=== PATIENT | female | born 1970 | race Caucasian/White ===

== ENCOUNTER 2018-11-20 14:15 | Outpatient (REF) | payer OTHER, SELFPAY ==
--- NOTE | 2018-11-20 14:00 | PAPFT_PTH ---
PATIENT: Devin Davis LOC: [facility] U#:[id number] AGE/SX: 47/F ROOM: RE11/20/[address]: ANTON Madden : 1970 BED: DIS: 11/20/2018 SPEC #: [id number] RECD: 11/20/18 17:58 STATUS: CEASAR REQ #: [id number] MONICA: 11/20/18 14:[address]: Sharmaine eVntura DEPT: [facility] Cytology RECD BY: Callie Hankins ENTERED: 11/20/18 17:59 SP TYPE: PAPFT NANDINI DR: Haydee Breaux Tissues: 1 - CX/ENDOCX FOR PAP SMEARS Procedures: PAP THIN PREP/UVM Screening HPV DNA PROBE Comments: [id number]
== END 2018-11-20 14:35 ==
LOC: LBN 14:15
PROVIDERS: PCP Physician Assistant Medical; Visit Provider Nurse Practitioner Family
DX: Z12.4 Encounter for screening for malignant neoplasm of cervix (principal); Z11.51 Encounter for screening for human papillomavirus (HPV)
CPT/HCPCS: 88142; 87624

== ENCOUNTER 2019-04-16 16:36 | Outpatient (REF) | payer OTHER, SELFPAY ==
--- NOTE | 2019-04-16 14:30 | LABIA_PTH ---
PATIENT: Devin Davis LOC: [facility] U#:[id number] AGE/SX: 48/F ROOM: RE04/16/[address]: Darleen Rice NP : 1970 BED: DIS: 04/16/2019 SPEC #: [id number] RECD: 04/16/19 17:18 STATUS: CEASAR REDilshad #: [id number] MONICA: 04/16/19 14:[address]: Darleen Rice NP DEPT: Surgical Specimen RECD BY: Callie Hankins ENTERED: 04/16/19 17:19 SP TYPE: LABIA OTHR DR: Haydee Breaux Tissues: 1 - LABIA BX Procedures: GROSS AND MICRO LEVEL 4 SPECIAL STAIN 1 Comments: [id number]
== END 2019-04-16 16:56 ==
LOC: LBN 16:36
PROVIDERS: PCP Physician Assistant Medical; Visit Provider Nurse Practitioner Women's Health
DX: L29.2 Pruritus vulvae (principal); N90.69 Other specified hypertrophy of vulva; N90.4 Leukoplakia of vulva
CPT/HCPCS: 88305; 88312

== ENCOUNTER 2020-02-13 14:18 | Outpatient (REF) | payer OTHER, SELFPAY ==
[2020-02-17 21:54] LABS: Patient Race White; SARS-CoV-2 RNA Undetected (Undetected); SARS-CoV-2 Specimen Source Nasal
== END 2020-02-13 14:38 ==
LOC: NCHCN 14:18
PROVIDERS: PCP Physician Assistant Medical; Visit Provider Physician Assistant Medical
DX: Z11.59 Encounter for screening for other viral diseases (principal); Z00.00 Encounter for general adult medical examination without abnormal findings
CPT/HCPCS: U0003

== ENCOUNTER 2020-02-26 14:35 | Outpatient (REF) | payer SELFPAY ==
[2020-02-29 16:59] LABS: COVID-19 RT-PCR Result NEGATIVE (Negative)
== END 2020-02-26 14:55 ==
LOC: NCHCN 14:35
PROVIDERS: PCP Physician Assistant Medical; Visit Provider Physician Assistant Medical
DX: Z11.59 Encounter for screening for other viral diseases (principal)
CPT/HCPCS: U0003

== ENCOUNTER 2020-04-21 01:57 | Outpatient (CLI) | payer BC, SELFPAY ==
--- NOTE | 2020-04-21 07:15 | DI.MAMMO_ITS ---
EXAM: MAMMO SCREENING CLINICAL HISTORY: screening,Z12.39 TECHNIQUE: Mammograms were interpreted according to the usual protocol including computer analysis w [employer] CAD system, tomosynthesis and C-view imaging. COMPARISON: 2013 and 2014 FINDINGS: The breasts are composed of scattered fibroglandular densities, Breast Density category B. No suspicious masses or suspicious microcalcifications are seen. No skin thickening or abnormal axillary lymph nodes are seen. There has been no significant change from prior exams. A biopsy marker clip is again noted in the sup erior right breast. IMPRESSION: BI-RADS Category 1, Negative mammogram Yearly screening mammography is recommended. Breast Density - Category B, scattered fibroglandular densities. A negative radiographic report should not delay biopsy if a dominant or clinically suspicious mass is present. Up to ten percent of cancers are not identified on mammography. A negative report may reinforce clinical impression. Adenosis and dense breasts may obscure an underlying neoplasm. False positive reports average 6 to 10%. Patient will receive a letter notifying them of these results.
== END 2020-04-21 02:17 ==
PROVIDERS: PCP Physician Assistant Medical; Visit Provider Obstetrics & Gynecology
DX: Z12.31 Encounter for screening mammogram for malignant neoplasm of breast (principal)
CPT/HCPCS: 77063; 77067

== ENCOUNTER 2020-05-08 18:47 | Outpatient (CLI) | payer BC, SELFPAY ==
[2020-05-09 11:46] LABS: COVID-19 RT-PCR UVMMC Result Negative (Negative)
== END 2020-05-08 18:48 | disposition home or self-care (01) ==
LOC: LBO 05-14 18:48
PROVIDERS: PCP Physician Assistant Medical; Visit Provider Surgery
DX: Z01.818 Encounter for other preprocedural examination (principal)
CPT/HCPCS: U0003

== ENCOUNTER 2020-05-11 11:59 | Day surgery (SDC) | payer BC, SELFPAY ==
--- NOTE | 2020-05-11 07:08 | W.COLOREPORT ---
Date of service: 05/11/20 Time of Service: 14:17 Colonoscopy Report Date of procedure: 05/11/20 Pre-op diagnosis general: Colon Cancer Screening Post-op diagnosis procedure note: same Procedure: Colonoscopy Surgeon: Gisselle Ponce Anesthesia proc note operative: other (General/ASA 2/Albaro Mendez, ELLIE) Estimated blood loss (mL): 0 Pathology: none sent Complications: None Disposition: same day Indications: The patient is here for Colonoscopy pre-op. She has no family history of colon cancer. 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 She has not had any bowel habit changes. -Discussed colonoscopy bowel prep as well as the procedure. Discussed possible complications of the procedure to include bleeding, pain, perforation, missed small lesion/polyp, sore throat, aspiration and adverse reaction to the medications. Questions were answered to patient?s satisfaction. No guarantees were implied or given. I spent 26 minutes in reviewing the record, seeing the patient, providing patient education, answering patient's questions and documenting in the medical record. P// Colonoscopy under sedation. Prep: Miralax/Dulcolax Procedure Start Time: 14:17 Procedure End Time: 14:39 Retraction Time: 12 minutes Findings: Normal colon Procedure Description: After informed consent was obtained the patient was taken to the procedure room and placed in a left decubitous position. Monitors were applied and a time out was done. The patients name, date of , procedure, allergies to medications and metal in their body was reviewed. The patient was then sedated. Once sedated and comfortable a rectal exam was done. External exam was normal. Internal exam revealed a normal sphincter tone and no palpable masses. The scope was then introduced and retro-flexed. No internal hemorrhoids, polyps or masses were identified on retro-flexion. The scope was then advanced to the cecum without difficulty. The ileocecal vlave and appendiceal orifice were identified. The prep was good. The scope was then slowly retracted over 12 minutes back into the rectum. There were no polyps. There was no diverticulosis noted. The scope was removed and the patient was woken up and taken back to Same day surgery in stable condition. The patient tolerated the procedure well and there were no immediate complications. Follow up: The patient should follow up in 10 years unless they develop changes in bowel habits or other new gastrointestinal complaints.
--- NOTE | 2020-05-11 07:09 | W.PM.DSUDISC ---
Discharge Plan Disposition Patient Disposition: HOME Condition: Good Discharge Details Reason For Visit: Colon Cancer Screening Attending Provider: Gisselle Ponce Primary Care Provider: Haydee Breaux Home Meds and New Rx's Prescriptions: Continued ParaGard T 380A 380 square mm intrauterine device 1 device IY ONCE RF: 0 spironolactone 25 MG tablet 50 mg PO DAILY RF: 0 calcium carbonate 500 MG tablet,chewable 500 mg PO DAILY Qty: 2 RF: 0 zolpidem [Ambien] 10 MG tablet 10 mg PO HS RF: 0 omega-3 fatty acids-fish oil 1 EACH capsule 1 ea PO DAILY RF: 0 Antioxidant A/C/E/Selenium 1 EACH capsule 1 ea PO DAILY RF: 0 Vitamin D3 (calcium cit-phos) 1 EACH tablet 1 ea PO DAILY RF: 0 venlafaxine 100 MG tablet 100 mg PO DAILY RF: 0 Discontinued polyethylene glycol 3350 17 gram/dose powder 238 g PO ONCE Qty: 238 RF: 0 bisacodyl [Dulcolax (bisacodyl)] 5 mg tablet,delayed release (DR/EC) 5 mg PO ONCE Qty: 4 RF: 0 No Action ibuprofen 200 mg Tablet 600 mg PO Q6H PRNRF: 0 Discharge Instructions Additional Instructions: Findings: Normal Follow up: 10 years Please call if you develop: fevers >101.5 Nausea or Vomiting Abdominal pain that is not transient DAY SURGERY UNIT POST ENDOSCOPY INSTRUCTIONS 1. Because there will be medication in your system for the next 24 hours, you may feel a little sleepy. Your coordination will be affected. Therefore: a. Do not drive or operate dangerous equipment for 24 hours. b. Do not drink alcohol beverages for 24 hours (not even beer). c. Plan to go home and rest for the day. 2. Generally there are no restrictions on your activity after a day or so has gone by, but you may feel a bit fatigued for a few days. 3 After you arrive home you may have a light meal and return to a normal diet as you can tolerate it without feeling sick to your stomach. 4. After surgery, you may feel pain or discomfort. This should be only transient, but if it persists please contact your doctor. 5. If there are any questions regarding the findings of your procedure, please feel free to contact your doctor. 6. If you are unable to contact your doctor with a problem, contact the hospital at [phone]. 5. Continue all your regular medications unless directed otherwise. I understand the above instructions and have no questions. Signature of Patient or Responsible Adult Escort Date/Time Name of Responsible Adult Escort Signature of Nurse Date/Time Activity:: Activity as Tolerated Diet:: As Tolerated Discharge Orders Discharge Orders: Discharge Order (Routine); Ordered 05/11/20 Ordered By: Gisselle Ponce
[2020-05-11 12:28] VITALS: BP 109/69; PULSE 79; RESP 16; TEMP 36.3; O2SAT 99
[2020-05-11] MEDS: Lactated Ringers 1,000 ML 80 ML IV (12:55)
[2020-05-11 15:03] VITALS: BP 107/67; PULSE 75; RESP 16; TEMP 36.7; O2SAT 100
== END 2020-05-11 15:40 | disposition home or self-care (01) ==
LOC: SUR 11:59
PROVIDERS: PCP Physician Assistant Medical; Visit Provider Surgery
PROC: 0DJD8ZZ Inspection of Lower Intestinal Tract, Via Natural or Artificial Opening Endoscopic (ICD-10-PCS; CPT 45378; principal; 2020-05-11 13:00)
DX: Z12.11 Encounter for screening for malignant neoplasm of colon (principal)
CPT/HCPCS: 45378; 81025; J2001

== ENCOUNTER 2021-02-16 13:41 | Outpatient (REF) | payer BC, SELFPAY ==
[2021-02-17 14:37] LABS: COVID-19 RT-PCR UVMMC Result Negative (Negative)
== END 2021-02-16 13:42 | disposition home or self-care (01) ==
LOC: NCHCN 13:41
PROVIDERS: PCP Physician Assistant Medical; Visit Provider Physician Assistant Medical
DX: Z20.822 Contact with and (suspected) exposure to COVID-19 (principal)
CPT/HCPCS: U0003

== ENCOUNTER 2022-11-29 16:05 | Outpatient (REF) | payer BC, SELFPAY ==
--- NOTE | 2022-11-29 15:30 | PAPFT_PTH ---
PATIENT: Devin Davis LOC: [facility] U#:[id number] AGE/SX: 51/F ROOM: RE11/29/[address]: Darleen Rice NP : 1970 BED: DIS: 11/29/2022 SPEC #: [id number] RECD: 11/30/22 17:29 STATUS: CEASAR DODD #: [id number] MONICA: 11/29/22 15:[address]: Darleen Rice NP DEPT: [facility] Cytology RECD BY: Callie Hankins ENTERED: 11/30/22 17:29 SP TYPE: PAPFT NANDINI DR: Haydee Breaux Tissues: 1 - CX/ENDOCX FOR PAP SMEARS Procedures: PAP THIN PREP/UVM Screening HPV DNA PROBE Comments: [id number]
== END 2022-11-29 16:06 | disposition home or self-care (01) ==
LOC: LBN 16:05
PROVIDERS: PCP Physician Assistant Medical; Visit Provider Nurse Practitioner Women's Health
DX: Z12.4 Encounter for screening for malignant neoplasm of cervix (principal); R87.610 Atypical squamous cells of undetermined significance on cytologic smear of cervix (ASC-US); Z11.51 Encounter for screening for human papillomavirus (HPV); R87.810 Cervical high risk human papillomavirus (HPV) DNA test positive
CPT/HCPCS: 88142; 87624

== ENCOUNTER → 2022-11-30 09:57 | Outpatient (CLI) | payer BC, SELFPAY ==
--- NOTE | 2022-11-30 09:45 | DI.RAD_ITS ---
Exam(s) XR PELVIS AP EXAM: XR PELVIS AP CLINICAL HISTORY: retained IUD arm localization, T83.32XA. TECHNIQUE: 2D digital imaging was performed. COMPARISON: No exams were available for comparison FINDINGS: BONES: No acute fracture is present. No bony destructive lesion is seen. JOINTS: No dislocation present. No joint space narrowing is present. SOFT TISSUE: There is a 1.2 cm linear radiopaque foreign body seen in the pelvis. This may represent an arm of an IUD. It lies just to the left of the sacrum. IMPRESSION: Finding which would be consistent with retained IUD arm located to the left of the sacrum in the pelv is. Its exact location cannot be determined and if clinically indicated, a noncontrast CT scan of th e pelvis may be obtained for localization. DATA REPOSITORY: RADIATION DOSE DELIVERED:
== END ==
PROVIDERS: PCP Physician Assistant Medical; Visit Provider Obstetrics & Gynecology
DX: T83.32XA Displacement of intrauterine contraceptive device, initial encounter (principal); X58.XXXA Exposure to other specified factors, initial encounter
CPT/HCPCS: 72170

== ENCOUNTER → 2022-12-19 00:35 | Outpatient (CLI) | payer BC, SELFPAY ==
--- NOTE | 2022-12-19 11:45 | DI.MAMMO_ITS ---
Exam(s) MAMMO SCREENING EXAM: MAMMO SCREENING CLINICAL HISTORY: screening. TECHNIQUE: Bilateral full field digital CC and MLO mammographic images were obtained with 3D tomosyn thesis and utilizing computer aided detection (CAD). COMPARISON: Prior mammograms were reviewed. FINDINGS: There has been no significant change in the appearance and distribution of the fibroglandular tissue. There are no CAD designations. There are no new spiculated masses nor malignant appearing microcalcification groups. No new findings in the immediate vicinity of the biopsy marker clip in the right breast. There is no significant architectural distortion nor skin thickening-retraction. IMPRESSION: No radiographic evidence of malignancy. BI-RADS Category 1 - Negative Breast Density - Category B - Scattered areas of fibroglandular density Breast density Category C or D implies that the patient has dense breast tissue. Dense breast tissue can make it harder to find cancer on a mammogram. Dense breast tissue is also associated with an incr eased risk of breast cancer. This information about the result of the mammogram report was provided to the patient to raise their awareness. Use this report when you speak with the patient about their risks for breast cancer, which includes their family history. At that time, you may recommend additional screening tests (Ultrasoun d or MRI) as these tests may add significant information. A negative radiographic report should not delay biopsy if a dominant or clinically suspicious mass is present. Up to ten percent of cancers are not identified on mammography. A negative report may reinforce clinical impression. Adenosis and dense breasts may obscure an underlying neoplasm. False positive reports average 6 to 10%. Patient will receive a letter notifying them of these results.
== END ==
PROVIDERS: PCP Physician Assistant Medical; Visit Provider Nurse Practitioner Women's Health
DX: Z12.31 Encounter for screening mammogram for malignant neoplasm of breast (principal)
CPT/HCPCS: 77063; 77067

== ENCOUNTER 2022-12-27 13:59 | Outpatient (CLI) | payer BC, SELFPAY ==
[2022-12-27 14:04] LABS: Abs Immature Grans 0.01 10^3/uL (0.0-0.06); Absolute Basophil Count 0.07 10^3/uL (0.0-0.2); Absolute Eosinophil Count 0.49 10^3/uL (0.0-0.7); Absolute Lymphocyte Count 1.83 10^3/uL (1.2-3.4); Absolute Monocyte Count 0.45 10^3/uL (0.1-0.8); Absolute Neutrophil Count 4.54 10^3/uL (1.2-6.7); Basophils % 0.9; Eosinophils % 6.6; HCT 41.6 % (36.0-46.0); HGB 13.8 g/dL (11.2-15.7); Immature Grans % 0.1; Lymphocytes % 24.8; MCH 29.7 pg (27.0-33.0); MCHC 33.2 % (32.0-36.0); MCV 90 fL (80-95); MPV 8.9 fL (8.0-11.0); Monocytes % 6.1; Neutrophils % 61.5; Platelet Count 395 10^3/uL (130-400); RBC 4.65 10^6/uL (3.93-5.22); RDW 11.6 % (11.7-14.6); RDW-SD 37.7 fL; WBC 7.39 10^3/uL (4.4-10.8)
== END 2022-12-27 14:00 | disposition home or self-care (01) ==
LOC: LBO 13:59
PROVIDERS: PCP Physician Assistant Medical; Visit Provider Obstetrics & Gynecology
DX: Z01.818 Encounter for other preprocedural examination (principal)
CPT/HCPCS: 36415; 86850; 86900; 86901; 85025

== ENCOUNTER 2022-12-29 06:07 | Day surgery (SDC) | payer BC, SELFPAY ==
--- NOTE | 2022-12-29 06:26 | W.ANESPRE ---
General Info Date of Service Date Performed: 12/29/22 Height: 5 ft 8 in Weight: 67.132 kg Body Mass Index (BMI): 22.5 Surgical Procedure: Operation Date: 12/29/22 07:40 Proposed Procedure Side Surgeon p Diagnostic Laparoscopy Areli Seo MD s possible Hysteroscopy, removal of IUD arm, surgery as indicated Areli Seo MD Meds Allergies and Home Medications Allergies Allergy/AdvReac Type Severity Reaction Status Date / Time trazodone Allergy Severe LABORED Verified 12/29/22 06:31 BREATHING latex AdvReac Intermediate Verified 12/29/22 06:31 Home Medication Medication Instructions Recorded calcium carbonate 500 mg calcium 500 mg PO DAILY ##2 02/06/13 (1,250 mg) chewable tablet omega-3 fatty acids-fish oil 300 1 ea PO DAILY 02/06/13 mg-1,000 mg capsule spironolactone 25 mg tablet 50 mg PO DAILY 02/06/13 vitamins A,C,and E-selenium 1 ea PO DAILY 02/06/13 capsule (Antioxidant A/C/E/Selenium capsule) venlafaxine 100 mg tablet 100 mg PO DAILY 05/23/16 copper 380 square mm intrauterine 1 device intrauterine ONCE 04/03/19 device (ParaGard T 380A) ibuprofen 200 mg tablet 600 mg PO Q6H PRN 05/11/20 methylphenidate HCl 5 mg tablet 5 mg PO BID 11/29/22 (Ritalin) zolpidem 10 mg tablet (Ambien) 5 mg PO HS 11/29/22 aripiprazole 2 mg tablet 1 mg PO BID 12/27/22 progesterone micronized 100 mg 100 mg PO HS 12/28/22 capsule Current Visit Medications: Current Medications Generic Name Dose Route Start Last Admin Trade Name Freq PRN Reason Stop Dose Admin Ringer's Solution 1,000 mls @ 125 mls/hr 12/29/22 06:00 IV 01/27/23 23:59 INFUSION DAYANA IV Miscellaneous Supplies 1 each 12/29/22 06:00 Iv Access IV 01/27/23 23:59 DIRECTED DAYANA Sodium Chloride 0 ml 12/29/22 06:00 Normal Saline Flush 10 Ml Syr IV 01/27/23 23:59 PRN PRN Sodium Chloride 0 ml 12/29/22 06:00 Normal Saline 10 Ml Vial IJ 01/27/23 23:59 DIRECTED PRN Sterile Water 0 ml 12/29/22 06:00 Water,Injection,Sterile 10 Ml Vial IJ 01/27/23 23:59 DIRECTED PRN PFSH Active Problems Active Problems: Problem Status Onset Code Perimenopause N95.1 Malpositioned IUD T83.32XA Medical History Medical History Breast cancer screening breast lump R Benign 2009 IUD surveillance (02/01/12) Attempted paragard IUD removal 11/29 (only the shaft) and 11/30 with endosee (only 1 arm). x-ray scheduled for evaluation for other arm Surgical History Surgical History History of recent maxillofacial surgery surgery was wisdom teeth removed Hx of esophagogastroduodenoscopy Sclerotherapy L leg veins 2007 Tobacco Smoking/Tobacco Use Status: Former Tobacco Use Substance Use Substance use: Current Sobriety Substance use type: former substance user Prental History History 5 Para 0 Hx # Term Pregnancies Multiple births Hx # Pregnancies Ectopic pregnancies AB induced Hx Number of Living Children 1 AB spontaneous Vital Signs and Lab Results Lab Results Blood Type / Crossmatch: Patient ABO/Rh O Positive 12/27/22 Antibody Screen NEGATIVE 12/27/22 Complete Blood Count: White Blood Count 7.39 10^3/uL (4.4-10.8) 12/27/22 13:45 Red Blood Count 4.65 10^6/uL (3.93-5.22) 12/27/22 13:45 Hemoglobin 13.8 g/dL (11.2-15.7) 12/27/22 13:45 Hematocrit 41.6 % (36.0-46.0) 12/27/22 13:45 Platelet Count 395 10^3/uL (130-400) 12/27/22 13:45 Complete Metabolic Panel: No Data to Display Liver Function Panel: No Data to Display Coagulation Panel: No Data to Display Cardiac Panel: No Data to Display Arterial Blood Gas: No Data to Display Venous Blood Gas: No Data to Display Pancreas Panel: No Data to Display Thyroid Panel: No Data to Display Infectious Disease: No Data to Display Blood Cultures: No Data to Display Toxicology Panel: No Data to Display Panel: No Data to Display Anesthesia Assessment and Plan Anesthesia History Personal History: No History of Anesthesia Complications Family History: No Family History of Anesthesia Complications Exercise Tolerance Exercise Tolerance: Metabolic Equivalents>4 Pertinent Negatives Pertinent Negatives: No Symptoms of GERD, No Major Cardiovascular Symptoms or Complaints, No Major Pulmonary Symptoms or Complaints and No History of CVA/TIA Cardiac & Pulmonary Exam Cardiac Exam: Normal S1/S2 Heart Sounds Pulmonary Exam: Clear Bilateral Breath Sounds Implantable Cardiac Device Does patient have a Pacemaker or an ICD?: No Airway Exam Known Difficult Airway: No Mallampati Class: 2 Mouth Opening: Normal (> 3cm) Thyromental Distance: Greater than 3 cm Neck Range of Motion: Full ROM Neck Circumference: Normal Teeth Condition: Normal Dentition ASA Classification ASA Score: ASA 2 Emergency Case?: No NPO Status NPO Status: NPO Clears >2 hours, Solids >8 hours Status Status: Pt. refuses testing, she was counseled on anesthesia risks Anesthesia Plan Resuscitation Status: Full Code Anesthesia Technique: General Anesthesia Airway Planned: Natural Airway Monitors Used: Standard Monitors Preoperative Comments:: Patient concerned on receiving LR (makes her feel sick), does not want a test (still menstruating about once every 6 mo but does not feel she is and is concerned about cost, wishes to minimize testing and intervention), does not want an endotracheal tube unless absolutely necessary (patient uses her voice for work and is worried about vocal cord dysfunction after intubation). Ordered NS as a carrier, discussed and anesthesia at length, discussed when an ETT might be used and why and patient did agree if necessary can be placed. I will downsize the ETT to a 6.0 to minimize contact with vocal cords.
[2022-12-29 06:34] VITALS: BP 110/72; PULSE 67; RESP 16; TEMP 36.5; O2SAT 99
[2022-12-29] MEDS: Normal Saline Flush 10 ML SYR IV (06:55)
[2022-12-29] MEDS: Normal Saline 1,000 ML 30 ML IV (07:25)
[2022-12-29 07:31] VITALS: BMI 22.5
[2022-12-29] MEDS: Bupivacaine 0.5% Pres-Free 30 ML VIAL (08:12)
[2022-12-29 08:28] VITALS: BP 101/70; PULSE 61; RESP 16; TEMP 36.2; O2SAT 100
--- NOTE | 2022-12-29 08:38 | W.PM.OP ---
Date of service: 12/29/22 Time of Service: 08:00 Operative Note Operative Note DATE OF PROCEDURE: 12/29/22 PRE-OP DIAGNOSIS: Retained Paragard IUD arm POST-OP DIAGNOSIS: same PROCEDURE: Hysteroscopy, removal of IUD arm SURGEON: Areli Seo Refer to Anesthesia Record ESTIMATED BLOOD LOSS: 5 COMPLICATIONS: None Patient was transported to: same day Patient's condition: stable Indications: Retained paragard IUD arm after removal in office of only the IUD shaft, then office endosee procedure with removal of only 1 arm. Findings: The IUD arm was visualized in the left wall of the upper cervix. The endometrial cavity was viewed from within the cervical canal and appeared normal. Procedure Description: After informed consent was signed the patient was taken to the operating room and given General room air anesthesia.? SCDs were placed on her legs.? She was prepped and draped in the dorsal lithotomy position in the [facility].? A time out was performed. Her bladder was drained of urine.? Exam under anesthesia revealed normal external genitalia, vagina normal for age and a normal sized uterus. A speculum was placed into the vagina to reveal the cervix.? The anterior lip of the cervix was grasped with a single tooth tenaculum.? A paracervical block was given [id number] of 0.25% marcaine.? The hysteroscope was assembled and inserted into the cervical canal. Toward the upper left side of the cervical wall the white IUD arm was visualized poking out of the wall. It was grasped with a grasper and slowly pulled out of the wall. The site was inspected after removal and good hemostasis was noted. The uterine cavity was briefly viewed from the cervix and appeared normal. The tenaculum was removed from the cervix with good hemostasis.? The speculum was removed from the vagina. The patient was placed back into the supine position.? She was moved to the stretcher and taken to the recovery room in stable condition.
[2022-12-29 08:58] VITALS: BP 99/63; PULSE 78; RESP 16; TEMP 36.6; O2SAT 100
--- NOTE | 2022-12-29 10:15 | W.ANESPOSTOP ---
Postoperative Evaluation Date, Time and Location Date Performed: 12/29/22 Time Performed: 08:58 Patient Location: Day Surgery Unit Vital Signs Most Recent Imported Vital Signs: Most Recent Vital Signs Temp Pulse Resp BP Pulse Ox 36.6 C 78 16 99/63 L 100 12/29/22 08:58 12/29/22 08:58 12/29/22 08:58 12/29/22 08:58 12/29/22 08:58 Pain Score Most Recent Pain Score: Most Recent Pain Score Pain Level 0 12/29/22 08:58 Assessment Mental Status: Awake (Alert & Oriented to Patient Baseline) Airway and Respiratory Function: Patent airway with normal (patient baseline) respiratory exam Cardiovascular Function: Hemodynamically Stable Hydration Status: Adequately Hydrated Nausea & Vomiting: No Nausea or Vomiting Pain: Pt. Denies Any Pain Peripheral Nerve Block: Patient did not receive a nerve block
== END 2022-12-29 09:23 | disposition home or self-care (01) ==
PROVIDERS: PCP Physician Assistant Medical; Visit Provider Obstetrics & Gynecology
PROC: 0UJD8ZZ Inspection of Uterus and Cervix, Via Natural or Artificial Opening Endoscopic (ICD-10-PCS; CPT 58555; 2022-12-29 07:30)
DX: Z30.432 Encounter for removal of intrauterine contraceptive device (principal)
CPT/HCPCS: 58562; J0131; J1885; J2001; J2405

== ENCOUNTER 2023-04-04 10:35 | Outpatient (REF) | payer BC, SELFPAY | END 2023-04-04 10:36 | disposition home or self-care (01) | LOC: LBN 10:35 | PROVIDERS: PCP Physician Assistant Medical; Visit Provider Advanced Practice Midwife | DX: N89.8 Other specified noninflammatory disorders of vagina (principal) | CPT/HCPCS: 87480; 87510; 87660 ==

== ENCOUNTER 2023-07-24 16:01 | Outpatient (REF) | payer BC, SELFPAY ==
--- NOTE | 2023-07-24 15:30 | PAPFT_PTH ---
PATIENT: Devin Davis LOC: [facility] U#:[id number] AGE/SX: 52/F ROOM: RE07/24/[address]: Areli Seo MD : 1970 BED: DIS: 07/24/2023 SPEC #: [id number] RECD: 07/24/23 18:06 STATUS: CEASAR REDilshad #: [id number] MONICA: 07/24/23 15:[address]: Areli Seo DEPT: [facility] Cytology RECD BY: Callie Hankins ENTERED: 07/24/23 18:06 SP TYPE: PAPFT NANDINI DR: Haydee Breaux Tissues: 1 - CX/ENDOCX FOR PAP SMEARS Procedures: PAP THIN PREP/UVM Screening HPV DNA PROBE Comments: [id number]
== END 2023-07-24 16:02 | disposition home or self-care (01) ==
LOC: LBN 16:01
PROVIDERS: PCP Physician Assistant Medical; Visit Provider Obstetrics & Gynecology
DX: Z01.419 Encounter for gynecological examination (general) (routine) without abnormal findings (principal); N90.89 Other specified noninflammatory disorders of vulva and perineum
CPT/HCPCS: 88142; 87624

== ENCOUNTER 2024-01-25 12:12 | Outpatient (CLI) | payer BC, SELFPAY ==
--- OUTSIDE RECORDS SUMMARY | 2024-01-25 12:15 | XMS_ITS | Encounter Summary ---
Author Organization [facility] Address [address] [place] [address] Care Team Providers Care Center Medical And Lab Director Name Role Phone Md SONYA Murillo Primary Care Provider Haydee Garrido PA-C Primary Care Provider + Encounter Details Date Type Department Care Team (Late st Contact Info) Description 05/20/2020 Lab Requisition [facility] Pathology & Laboratory Medicine - [address] [address] Rocky Newman, PharmD [address] [place] [address] Contact with and (suspected) exposure to covid-19 Social History Tobacco Use Types Packs/Day Years Used Date Smoking Tobacco: Never Assessed Sex and Gender Information Value Date Recorded Sex Assigned at Not on file Gender Identity Not on file Sexual Orientation Not on file documented as of this encounter Plan of Treatment Not on file documented as of this encounter Procedures Procedure Name Priority Date/Time Associated Diagnosis Comments ZZCOVID-19 TEST [facility] PCR Today 05/20/2020 12:45 EST Contact with and (suspected) exposure to covid-19 COVID-19 TESTING Today 05/20/2020 12:4 5 EST Contact with and (suspected) exposure to covid-19 documented in this encounter Results * COVID-19 TEST [facility] PCR (05/20/2020 12:45 EST) Swab ENTIRE NASOPHARYNX / Unknown 05/20/2020 12:45 EST 05/20/2020 20:48 EST Rocky Newman PharmD MICROBIOLOGY - G ENERAL ORDERABLES [facility] [address] [place] [address] * COVID-19 TESTING (05/20/2020 12:45 EST) COVID-19 rt-PCR Result Negative Negative 05/21/2020 13:12 EST [facility] Comment: This test has not been FDA cleared or approved. This test has been authorized by FDA under an EUA for use by authorized laboratories. This test has been authorized only for detection of nucleic acid from 2019-nCoV, not for any other viruses or pathogens. This test is only authorized for the duration of the declaration that circumstances exist justifying the authorization of emergency use of in vitro diagnostic tests for detection and/or diagnosis of 2019-nCoV under section 564(b)(1) of Act, 21 U.S.C ?? 360bbb-3(b) (1), unless the authorization is terminated or revoked sooner. Negative results do not preclude 2019-nCoV infection and should not be used as the sole basis for treatment or other patient management decisions. Negative results must be combined with clinical observations, patient history, and epidemiological information. This test was developed and its performance characteristics determined by [facility]. It has not been cleared or approved by the US Food and Drug Administration. FDA does not require this test to go through premarket FDA review. This test is used for clinical purposes. It should not be regarded as investigational or for research. This laboratory is certified under the Clinical Laboratory Improvement Amendments (CLIA) as qualified to perform high complexity clinical laboratory testing. This test is based on the [facility] COVID-19 Emergency Use Authorization (EUA) assay, with minor modification as defined by the FDA Performed on the [employer] 7 Flex RT-PCR System. Performing Lab [facility] 05/21/2020 13:12 EST [facility] Swab 05/20/2020 12:4 5 EST 05/20/2020 20:48 EST Rocky Newman PharmD MICROBIOLOGY - G ENERAL ORDERABLES [facility] [address] [place] [address] documented in this encounter Visit Diagnoses Diagnosis Contact with and (suspected) exposure to covid-19 documented in this encounter Care Teams Center Medical And Lab Director Relationship Specialty Start Date End Date Md Murillo MD PCP - General 12/03/09 11/24/22 Haydee Breaux PA-C [address] [place] [id number] PCP - General 11/25/22 documented as of this encounter
--- OUTSIDE RECORDS SUMMARY | 2024-01-25 12:15 | XMS_ITS | Encounter Summary ---
Author Organization [facility] Address [address] [place] [address] Care Team Providers Care Admissions Counselor Name Role Phone Md SONYA Murillo Primary Care Provider Haydee Garrido PA-C Primary Care Provider + Encounter Details Date Type Department Care Team (Late st Contact Info) Description 04/17/2019 Lab Requisition [facility] Pathology & Laboratory Medicine - [address] [address] Darleen Rice, SAND SCREENER OPERATOR [address] [place] [phone] Encounter for other general examination Social History Tobacco Use Types Packs/Day Years Used Date Smoking Tobacco: Never Assessed Sex and Gender Information Value Date Recorded Sex Assigned at Not on file Gender Identity Not on file Sexual Orientation Not on file documented as of this encounter Plan of Treatment Not on file documented as of this encounter Procedures Procedure Name Priority Date/Time Associated Diagnosis Comments SURGICAL PATHOLOGY Today 04/16/2019 Encounter for other general examination documented in this encounter Results * SURGICAL PATHOLOGY (04/16/2019) Final Diagnosis A. SKIN OF VULVA, LEFT LABIA, PUNCH BIOPSY: - Epidermal hyperplasia and hyperkeratosis with mild dermal fibrosis. See microscopic and comment. 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 There is no appreciable spongiosis to suggest an eczematous process. There is no interface alteration to suggest lichen sclerosus. Fungal organisms are not identified. 04/18/2019 13:23 [facility] Microscopic Description Sections consist of a punch biopsy of skin. There is orthokeratosis overlying an epidermis which shows mild hyperplasia. There is mild fibrosis. There is scant inflammation. PAS-D stain is negative for fungal organisms. Deeper levels have been examined. 04/18/2019 13:23 [facility] Clinical History Vulvar pruritis 04/18/2019 13:23 [facility] Attestation By the signature below, the attending physician certifies that they have personally conducted a gross and/or microscopic examination of the described specimens and rendered or confirmed the above diagnosis. 04/18/2019 13:23 [facility] at 1323 Gross Description A. Received in formalin labelled with proper patient identification (initials N, C) and L labia is a butts-white skin punch biopsy measuring 0.2 cm in diameter and excised to a depth of 0.1 cm. Submitted intact in A1. Priyanka Gregory 04/17/2019 08:22 04/18/2019 13:23 [facility] Scanned Images 04/18/2019 13:23 [facility] Tissue STRUCTURE OF RIGHT LABIUM MINUS / Unknown 04/16/2019 04/17/2019 7:42 EST Darleen Rice APRN PATHOLOGY ORDERAB LES [facility] [address] [place] [address] documented in this encounter Visit Diagnoses Diagnosis Encounter for other general examination documented in this encounter Care Teams Admissions Counselor Relationship Specialty Start Date End Date Md Murillo MD PCP - General 12/03/09 11/24/22 Haydee Breaux PA-C [address] [place] [address] PCP - General 11/25/22 documented as of this encounter
--- OUTSIDE RECORDS SUMMARY | 2024-01-25 12:15 | XMS_ITS | Clinical Summary ---
Author Organization [facility] Address [address] [place] [address] Care Team Providers Care Compliance Vice President Name Role Phone Haydee Breaux PA-C Primary Care Provider + Immunizations Name Administration Dates Next Due Covid-19 mRNA Vaccine (PFIZE R COVID-19) PF 0.3 ml IM (12 yrs+) 08/07/2020,07/17/2020 Social History Tobacco Use Types Packs/Day Years Used Date Smoking Tobacco: Never Assessed Sex and Gender Information Value Date Recorded Sex Assigned at Not on file Gender Identity Not on file Sexual Orientation Not on file Plan of Treatment Health Maintenance Due Date Last Done Comments Hepatitis C Screen 1970 Hepatitis B Vaccine (1 of 3 - 19+ 3-dose series) 1988 COVID-19 Vaccine ( season) 2023, 07/17/2020 Care Teams Compliance Vice President Relationship Specialty Start Date End Date Haydee Breaux PA-C [address] [place] [phone] PCP - General 11/25/22
--- OUTSIDE RECORDS SUMMARY | 2024-01-25 12:15 | XMS_ITS | Encounter Summary ---
Author Organization [facility] Address [address] [place] [address] Care Team Providers Care Sales Support Representative Name Role Phone Md SONYA Murillo Primary Care Provider Rosalia ble Encounter Details Date Type Department Care Team (Late st Contact Info) Description 02/06/2013 Results Only [facility] Laboratory Services - [facility] ([facility]) [address] [place] [address] [phone] Meeta Swani, DETECTIVE BUREAU CHIEF Social History Tobacco Use Types Packs/Day Years Used Date Smoking Tobacco: Never Assessed Sex and Gender Information Value Date Recorded Sex Assigned at Not on file Gender Identity Not on file Sexual Orientation Not on file documented as of this encounter Plan of Treatment Not on file documented as of this encounter Procedures Procedure Name Priority Date/Time Associated Diagnosis Comments PAP TEST- RESULT ONLY Routine 02/06/2013 0:00 EST documented in this encounter Results * PAP TEST- RESULT ONLY (02/06/2013 0:00 EST) Pathology Report: CYTOPATHOLOGY REPORT Reports generated via electronic interface contain original data; however they are lacking the format of the original report. Caution should be taken when reading/interpreti ng unformatted reports. Name: ? CASE, DEVIN ? Accession #: ? [id number] ? : ? 1970 (Age: 42) ??F ?Collect Date: ? 02/06/2013 ? Location: ? [facility] ? Receive Date: ? 02/08/2013 ? Provider: MEETA SWAIN DETECTIVE BUREAU CHIEF Copy to: JAZMYN VELASQUEZ MD ? Final Report SPECIMEN ADEQUACY ? Satisfactory for Evaluation - transformation zone component present GENERAL CATEGORIZATION ? Negative for Intraepithelial Lesion or Malignancy INTERPRETATION ? Reactive cellular changes associated with inflammation present (includes repair). Last Menstrual Period: 01/23/2013 Specimen/Source: ??Pap Test, Source Not Provided, [employer] Imaging System with manual evaluation Document reviewed and electronically signed by: ? PJ MARLOW MD ? Report ??Date: 02/14/2013 13:04 HPV with Pap Test ? Date Ordered: ? 02/14/2013 ? Status: ?? Signed Out ?Date Complete: ? 02/18/2013 ? By: ??System Interface ? Date Reported: ? 02/18/2013 ? Interpretation RESULT: Negative for HPV. No E6 or E7 mRNA is detected from HPV types 16,18,31,33,35, 39,45,51,52,56,58, 59,66, and 68 by morgue librarian mediated amplification. Test not validated for this type of specimen or collection method. The sensitivity and specificity of the test in this situation are unknown. The results should be interpreted with caution. Comments Document reviewed and electronically signed by: ? System Interface ? Report date: 02/18/2013 By the signature above, the attending physician certifies that he/she has personally conducted a gross and/or microscopic examination of the described specimens and rendered or confirmed the above diagnosis. End of Report [facility] 02/06/2013 02/08/2013 Meeta Swain DETECTIVE BUREAU CHIEF PATHOLOGY ORDERABLES Performing Organization Address City/State/[facility] Co de Phone Number [facility] COUNTS INCLUDE [address] [facility] [address] [place] [address] documented in this encounter Visit Diagnoses Not on filedocumented in this encounter Care Teams Sales Support Representative Relationship Specialty Start Date End Date Md Murillo MD PCP - General 12/03/09 11/24/22 documented as of this encounter
--- OUTSIDE RECORDS SUMMARY | 2024-01-25 12:15 | XMS_ITS | Encounter Summary ---
Author Organization [facility] Address [address] [place] [address] Care Team Providers Care Human Resources Recruiter Name Role Phone Md SONYA Murillo Primary Care Provider Rosalia ble Encounter Details Date Type Department Care Team (Late st Contact Info) Description 11/20/2018 Results Only [facility] [phone] Sharmaine Ventura, [address] [place] [address] Social History Tobacco Use Types Packs/Day Years [...] Diagnosis Comments PAP TEST- RESULT ONLY Routine 11/20/2018 0:00 EDT documented in this encounter Results * PAP TEST- RESULT ONLY (11/20/2018 0:00 EDT) Pathology Report: CYTOPATHOLOGY REPORT Reports generated via electronic interface contain original data; however they are lacking the format of the original report. Caution should be taken when reading/interpreti ng unformatted reports. Name: ? DEVIN DAVIS ? Accession #: ? [id number] ? : ? 1970 (Age: 47) ??F ?Collect Date: ? 11/20/2018 ? Location: ? [facility] ? Receive Date: ? 11/21/2018 ? Provider: SHARMAINE VENTURA WASH BARREL LEADER Copy to: TREVOR ANNE PA-C ? Final Report SPECIMEN ADEQUACY ? Satisfactory for Evaluation - transformation zone component present GENERAL CATEGORIZATION ? Negative for Intraepithelial Lesion or Malignancy ?? Last Menstrual Period: 10/25/18 Hormonal/Contracep tive status: Intrauterine device Specimen/Source: ??Pap Test, Cervix, ThinPrep Imaging System with manual evaluation Document reviewed and electronically signed by: ? Stephanie Wins[facility] CenterMARY KAY urias(ASCP) ? Report ??Date: 11/27/2018 13:41 HPV with Pap Test ? Date Ordered: ? 11/27/2018 ? Status: ?? Signed Out ?Date Complete: ? 11/28/2018 ? By: ??System Interface ? Date Reported: ? 11/28/2018 ? Interpretation RESULT: Negative for HPV. No E6 or E7 mRNA is detected from HPV types 16,18,31,33,35, 39,45,51,52,56,58, 59,66, and 68 by engineer automated equipment mediated amplification. Comments Document reviewed and electronically signed by: ? System Interface ? Report date: 11/28/2018 By the signature above, the attending physician certifies that he/she has personally conducted a gross and/or microscopic examination of the described specimens and rendered or confirmed the above diagnosis. End of Report [facility] 11/20/2018 11/21/2018 Sharmaine Ventura WASH BARREL LEADER PATHOLOGY ORDERABLES [facility] [address] [place] [address] documented in this encounter Visit Diagnoses Not on filedocumented in this encounter Care Teams Human Resources Recruiter Relationship Specialty Start Date End Date Md Murillo MD PCP - General 12/03/09 11/24/22 documented as of this encounter
--- OUTSIDE RECORDS SUMMARY | 2024-01-25 12:15 | XMS_ITS | Encounter Summary ---
Author Organization [facility] Address [address] [place] [address] Care Team Providers Care Test Equipment Mechanic Name Role Phone Md SONYA Murillo Primary Care Provider Unavaila ble Encounter Details Date Type Department Care Team (Late st Contact Info) Description 01/29/[address] [facility] [place] [address] [place] [address] Angelina Benedict RN Encounter for preprocedure screening laboratory testing for COVID-19 (Primary Dx) Social History Tobacco Use Types Packs/Day Years Used Date Smoking Tobacco: Never Assessed Sex and Gender Information Value Date Recorded Sex Assigned at Not on file Gender Identity Not on file Sexual Orientation Not on file documented as of this encounter Plan of Treatment Not on file documented as of this encounter Visit Diagnoses Diagnosis Encounter for preprocedure screening laboratory testing for COVID-19- Primary documented in this encounter Care Teams Test Equipment Mechanic Relationship Specialty Start Date End Date Md Murillo MD PCP - General 12/03/09 11/24/22 documented as of this encounter
--- OUTSIDE RECORDS SUMMARY | 2024-01-25 12:15 | XMS_ITS | Encounter Summary ---
Author Organization [facility] Address [address] [place] [address] Care Team Providers Care Horseradish Grinder Name Role Phone Md SONYA Murillo Primary Care Provider Haydee Garrido PA-C Primary Care Provider + Encounter Details Date Type Department Care Team (Late st Contact Info) Description 02/16/2021 Lab Requisition [facility] Pathology & [place] [address] Outr Resulting Lab, Provider Social History Tobacco Use Types Packs/Day Years Used Date Smoking Tobacco: Never Assessed Sex and Gender Information Value Date Recorded Sex Assigned at Not on file Gender Identity Not on file Sexual Orientation Not on file documented as of this encounter Plan of Treatment Not on file documented as of this encounter Procedures Procedure Name Priority Date/Time Associated Diagnosis Comments ZZCOVID-19 TEST [facility] PCR Today 02/16/2021 11:20 EST COVID-19 TESTING Routine 02/16/2021 11:2 0 EST documented in this encounter Results * COVID-19 TEST [facility] PCR (02/16/2021 11:20 EST) Swab 02/16/2021 11:2 0 EST 02/16/2021 21:28 EST Provider Outr Resulting Lab MICROBIOLOGY - GENERAL ORDERABLES [facility] [address] [place] [address] * COVID-19 TESTING (02/16/2021 11:20 EST) COVID-19 rt-PCR Result Negative Negative 02/17/2021 14:30 EST [facility] Comment: This test has not [...] clinical observations, patient history, and epidemiological information. Performed on the Media[employer] Fusion instrument Performing Lab Cylinder [facility] 02/17/2021 14:30 EST [facility] Swab 02/16/2021 11:2 0 EST 02/16/2021 21:28 EST Provider Outr Resulting Lab MICROBIOLOGY - GENERAL ORDERABLES [facility] [address] [place] [address] documented in this encounter Visit Diagnoses Not on filedocumented in this encounter Care Teams Horseradish Grinder Relationship Specialty Start Date End Date Md Murillo MD PCP - General 12/03/09 11/24/22 Haydee Breaux PA-C [address] [place] [phone] PCP - General 11/25/22 documented as of this encounter
--- OUTSIDE RECORDS SUMMARY | 2024-01-25 12:15 | XMS_ITS | Encounter Summary ---
Author Organization [facility] Address [address] [place] [id number] Care Team Providers Care Claim Processor Name Role Phone Md SONYA Murillo Primary Care Provider Rosalia ble Encounter Details Date Type Department Care Team (Late st Contact Info) Description 02/01/2012 Results Only [facility] Laboratory Services - [facility] ([facility] [address] [place] [address] [phone] Meeta Swain, WHITTLING ROOM OPERATOR Social History Tobacco Use Types Packs/Day Years [...] Diagnosis Comments PAP TEST- RESULT ONLY Routine 02/01/2012 0:00 EST documented in this encounter Results * PAP TEST- RESULT ONLY (02/01/2012 0:00 EST) Pathology Report: CYTOPATHOLOGY REPORT Reports generated via electronic interface contain original data; however they are lacking the format of the original report. Caution should be taken when reading/interpreti ng unformatted reports. Name: ? CASE, DEVIN ? Accession #: ? [id number] ? : ? 1970 (Age: 41) ??F ?Collect Date: ? 02/01/2012 ? Location: ? [facility] ? Receive Date: ? 02/02/2012 ? Provider: MEETA SAWIN WHITTLING ROOM OPERATOR Copy to: ? Final Report SPECIMEN ADEQUACY ? Satisfactory for Evaluation - transformation zone component present GENERAL CATEGORIZATION ? Negative for Intraepithelial Lesion or Malignancy INTERPRETATION ? Shift in jose present suggestive of bacterial vaginosis. Last Menstural Period: 01/19/12 Hormonal/Contracep tive status: Intrauterine device: paragard in situ Specimen/Source: ??Pap Test, Cervix/Endocervix, ThinPrep Imaging System with manual evaluation Document reviewed and electronically signed by: ? Jocy Rowell, [place](ASCP) ? Report ??Date: 02/08/2012 11:17 HPV with Pap Test ? Date Ordered: ? 02/08/2012 ? Status: ?? Signed Out ?Date Complete: ? 02/10/2012 ? By: ??System Interface ? Date Reported: ? 02/10/2012 ? Interpretation RESULT: Negative for HPV. No E6 or E7 mRNA is detected from HPV types 16,18,31,33,35, 39,45,51,52,56,58, 59,66, and 68 by process camera operator mediated amplification. Comments Document reviewed and electronically signed by: ? System Interface ? Report date: 02/10/2012 By the signature above, the attending physician certifies that he/she has personally conducted a gross and/or microscopic examination of the described specimens and rendered or confirmed the above diagnosis. End of Report [facility] 02/01/2012 02/02/2012 Meeta Swain WHITTLING ROOM OPERATOR PATHOLOGY ORDERABLES Performing Organization Address City/State/[facility] Co de Phone Number [facility] [address] [place] [address] documented in this encounter Visit Diagnoses Not on filedocumented in this encounter Care Teams Claim Processor Relationship Specialty Start Date End Date Md Murillo MD PCP - General 12/03/09 11/24/22 documented as of this encounter
--- OUTSIDE RECORDS SUMMARY | 2024-01-25 12:15 | XMS_ITS | Encounter Summary ---
Author Organization [facility] Address [address] [place] [address] Care Team Providers Care Metal Template Maker Name Role Phone Md SONYA Murillo Primary Care Provider Haydee Garrido PA-C Primary Care Provider + Encounter Details Date Type Department Care Team (Late st Contact Info) Description 02/27/2020 Lab Requisition [facility] Pathology & Laboratory Medicine - [address] [address] Outr Resulting Lab, Provider Social History Tobacco [...] Procedure Name Priority Date/Time Associated Diagnosis Comments DO NOT ORDER STANDALONE - [facility] COVID TEST Today 02/26/2020 13:00 EST COVID-19 TESTING Routine 02/26/2020 13:0 0 EST documented in this encounter Results * DO NOT ORDER STANDALONE - [facility] COVID TEST (02/26/2020 13:00 EST) COVID-19 rt-PCR Result NEGATIVE Negative 02/29/2020 16:54 EST [facility] Comment: 2019-novel Coronavirus (2019-nCoV) not detected by the qRT-PCR assay. Consider testing for other respiratory viruses or re-collecting for 2019-nCoV testing. Note: Optimum timing for peak viral levels during infections caused by 2019-nCoV have not been determined. Collection of multiple specimens from the same patient may be necessary to detect the virus. Limitations Positive results are indicative of active infection with SARS-CoV-2 but do not rule out bacterial infection or co-infection with other viruses. The agent detected may not be the definite cause of disease. In addition, detection of viral RNA may not indicate the presence of infectious virus or that SARS-CoV-2 is the causative agent for clinical symptoms. Negative results do not preclude SARS-CoV-2 infection and should not be used as the sole basis for patient management decisions. Negative results must be combined with clinical observations, patient history, and epidemiological information. False negative results may also occur if amplification inhibitors are present in the specimen or if inadequate numbers of organisms are present in the specimen. Optimum specimen types and timing for peak viral levels during infections caused by SARS-CoV-2 have not been fully determined. Collection of multiple specimens (types and time points) from the same patient may be necessary to detect the virus. The test was validated for use with upper respiratory specimens obtained via nasopharyngeal or oropharyngeal swabs in VTM, UTM, M4, M5, M6, saline, and MTM media. The performance of this test has not been established for other specimens. Specimens collected using other FDA recommended Specimen Collection Materials listed in the FDA COVID-19 Diagnostic [employer] communication (June 20, 2019) are processed with the caveat that they were not all validated for use with this test and the result must be interpreted in this context. Furthermore, a false negative results may occur if a specimen is improperly collected, transported or handled. If the virus mutates in the RT-PCR target region, SARS-CoV-2 may not be detected or may be detected less predictably. Inhibitors or other types of interference may produce a false negative result. An interference study evaluating the effect of common cold medications was not performed. This test is not FDA-cleared but its performance characteristics were established by our CLIA-certified, CAP-accredited, high complexity laboratory in accordance with CLIA regulations, College [employer] (CAP) guidelines (Jun 13, 2019), and FDA guidance (May 25, 2019). This test is only for use under the Food and Drug Administration's Emergency Use Authorization. Swab ENTIRE NASOPHARYNX / Unknown 02/26/2020 13:00 EST 02/27/2020 22:59 EST Provider Outr Resulting Lab MICROBIOLOGY - GENERAL ORDERABLES [facility] [place], [place] * COVID-19 TESTING (02/26/2020 13:00 EST) COVID-19 rt-PCR Result NEGATIVE Negative 02/29/2020 16:54 EST [facility] Comment: 2019-novel Coronavirus (2019-nCoV) not detected by the qRT-PCR assay. Consider testing for other respiratory viruses or re-collecting for 2019-nCoV testing. Note: Optimum timing for peak viral levels during infections caused by 2019-nCoV have not been determined. Collection of multiple specimens from the same patient may be necessary to detect the virus. Limitations Positive results are indicative of active infection with SARS-CoV-2 but do not rule out bacterial infection or co-infection with other viruses. The agent detected may not be the definite cause of disease. In addition, detection of viral RNA may not indicate the presence of infectious virus or that SARS-CoV-2 is the causative agent for clinical symptoms. Negative results do not preclude SARS-CoV-2 infection and should not be used as the sole basis for patient management decisions. Negative results must be combined with clinical observations, patient history, and epidemiological information. False negative results may also occur if amplification inhibitors are present in the specimen or if inadequate numbers of organisms are present in the specimen. Optimum specimen types and timing for peak viral levels during infections caused by SARS-CoV-2 have not been fully determined. Collection of multiple specimens (types and time points) from the same patient may be necessary to detect the virus. The test was validated for use with upper respiratory specimens obtained via nasopharyngeal or oropharyngeal swabs in VTM, UTM, M4, M5, M6, saline, and MTM media. The performance of this test has not been established for other specimens. Specimens collected using other FDA recommended Specimen Collection Materials listed in the FDA COVID-19 [employer] communication (June 20, 2019) are processed with the caveat that they were not all validated for use with this test and the result must be interpreted in this context. Furthermore, a false negative results may occur if a specimen is improperly collected, transported or handled. If the virus mutates in the RT-PCR target region, SARS-CoV-2 may not be detected or may be detected less predictably. Inhibitors or other types of interference may produce a false negative result. An interference study evaluating the effect of common cold medications was not performed. This test is not FDA-cleared but its performance characteristics were established by our CLIA-certified, CAP-accredited, high complexity laboratory in accordance with CLIA regulations, College of [employer] (CAP) guidelines (Jun 13, 2019), and FDA guidance (May 25, 2019). This test is only for use under the Food and Drug Administration's Emergency Use Authorization. Performing Lab [facility] 02/29/2020 16:54 EST [facility] Swab 02/26/2020 13:0 0 EST 02/27/2020 22:59 EST Provider Outr Resulting Lab MICROBIOLOGY - GENERAL ORDERABLES [facility] [address] [place] [address] [facility] [place], [place] documented in this encounter Visit Diagnoses Not on filedocumented in this encounter Care Teams Metal Template Maker Relationship Specialty Start Date End Date Md Murillo MD PCP - General 12/03/09 11/24/22 Haydee Breaux PA-C [address] [place] [address] PCP - General 11/25/22 documented as of this encounter
--- OUTSIDE RECORDS SUMMARY | 2024-01-25 12:15 | XMS_ITS | Referral Summary ---
Author Organization [facility] Address [address] [place] [address] Care Team Providers Care Pulley Man Name Role Phone Haydee Breaux PA-C Primary [...] Orientation Not on file Plan of Treatment Not on file Care Teams Pulley Man Relationship Specialty Start Date End Date Haydee Breaux PA-C [address] [place] [phone] PCP - General 11/25/22
--- OUTSIDE RECORDS SUMMARY | 2024-01-25 12:15 | XMS_ITS | Encounter Summary ---
Author Organization [facility] Address [address] [place] [address] Care Team Providers Care Recovery Engineer Name Role Phone Md SONYA Murillo Primary Care Provider Haydee Garrido PA-C Primary Care Provider + Encounter Details Date Type Department Care Team (Late st Contact Info) Description 05/08/2020 Lab Requisition [facility] Pathology & Laboratory Medicine - [address] [address] Outr Resulting Lab, Provider Social History Tobacco [...] Comments ZZCOVID-19 TEST [facility] LAB PCR Today 05/08/2020 9:26 EST COVID-19 TESTING Routine 05/08/2020 9:26 EST documented in this encounter Results * COVID-19 TEST [facility] PCR (05/08/2020 9:26 EST) Swab ENTIRE NASOPHARYNX / Unknown 05/08/2020 9:26 EST 05/08/2020 16:20 EST Provider Outr Resulting Lab MICROBIOLOGY - GENERAL ORDERABLES [facility] [address] [place] [address] * COVID-19 TESTING (05/08/2020 9:26 EST) COVID-19 rt-PCR Result Negative Negative 05/09/2020 11:40 EST [facility] Comment: This test has not [...] clinical observations, patient history, and epidemiological information. Testing was performed using the clarence SARS-CoV-2 assay ([employer] on the Clarence 6800 System Performing Lab [facility] [address] [facility] 05/09/2020 11:40 EST [facility] Swab 05/08/2020 9:26 EST 05/08/2020 16:20 EST Provider Outr Resulting Lab MICROBIOLOGY - GENERAL ORDERABLES [facility] [address] [place] [address] documented in this encounter Visit Diagnoses Not on filedocumented in this encounter Care Teams Recovery Engineer Relationship Specialty Start Date End Date Md Murillo MD PCP - General 12/03/09 11/24/22 Haydee Breaux PA-C [address] [place] [address] PCP - General 11/25/22 documented as of this encounter
--- OUTSIDE RECORDS SUMMARY | 2024-01-25 12:15 | XMS_ITS | Encounter Summary ---
Author Organization [facility] Address [address] [place] [address] Care Team Providers Care Weatherization Coordinator Name Role Phone Md SONYA Murillo Primary Care Provider Haydee Garrido PA-C Primary Care Provider + Encounter Details Date Type Department Care Team (Late st Contact Info) Description 04/22/2020 Lab Requisition [facility] Pathology & Laboratory Medicine - [address] [address] Rocky Newman, PharmD [address] [place] [phone] Encounter for screening for COVID-19 Social History Tobacco Use Types Packs/Day Years Used Date Smoking Tobacco: Never Assessed Sex and Gender Information Value Date Recorded Sex Assigned at Not on file Gender Identity Not on file Sexual Orientation Not on file documented as of this encounter Plan of Treatment Not on file documented as of this encounter Procedures Procedure Name Priority Date/Time Associated Diagnosis Comments COVID-19 EDUARDO TEST Today 04/22/2020 11 :15 EST Encounter for screening for COVID-19 documented in this encounter Results * COVID-19 EDUARDO TEST (04/22/2020 11:15 EST) SARS CoV-2 Specimen Source Nasopharynx 04/24/2020 18:46 EST [facility] Patient Race Unknown 04/24/2020 18:46 EST [facility] Patient Ethnicity Unknown 021 18:46 EST [facility] SARS-CoV-2 RNA Result Undetected Undetected 04/24/2020 18:46 EST [facility] Comment: SARS-CoV-2 RNA absent. This result does not rule out COVID-19 in the patient, as the sensitivity of the test depends on the timing of the specimen collection and the quality of the specimen. Result should be correlated with patient's history and clinical presentation. Method Summary SEE NOTE 04/24/2020 18:46 EST [facility] Comment: THFSH- This PCR test uses the TaqPath COVID-19 Combo Kit ([employer] and is performed on the [employer] particle processor and [employer] Fast Dx Real-Time PCR System. It has received Emergency Use Authorization (EUA) by the U.S. Food and Drug Administration. Performance characteristics were verified by [facility] in a manner consistent with CLIA requirements. Fact sheets for this Emergency Use Authorization (EUA) can be found at the following links: https://www.fda.gov/media/469379/download for Healthcare Providers https://www.fda.gov/media/772366/download for Patients Test Performed by: [place] [address] Creping Machine Operator: Kobe Avendaño M.D. Ph.D.; CLIA# [id number] Swab ENTIRE NASOPHARYNX / Unknown Swab / Unknown 04/22/2020 11:15 EST 04/22/2020 21:32 EST Rocky Newman PharmD MICROBIOLOGY - G ENERAL ORDERABLES [facility] [address] [place] [address] documented in this encounter Visit Diagnoses Diagnosis Encounter for screening for COVID-19 documented in this encounter Care Teams Weatherization Coordinator Relationship Specialty Start Date End Date Md Murillo MD PCP - General 12/03/09 11/24/22 Haydee Breaux PA-C [address] [place] [address] PCP - General 11/25/22 documented as of this encounter
--- OUTSIDE RECORDS SUMMARY | 2024-01-25 12:15 | XMS_ITS | Encounter Summary ---
Author Organization [facility] Address [address] [place] [address] Care Team Providers Care Director Global Market Research Name Role Phone Haydee Breaux PA-C Primary Care Provider + Encounter Details Date Type Department Care Team (Late st Contact Info) Description 09/06/2023 Transcribe Orders [facility] - [address] [place] [address] [place], [place] [phone] Elise Ledezma D, [place] [address] [phone] Menopausal and female climacteric states (Primary Dx); Attention-deficit hyperactivity disorder, predominantly inattentive type; Plantar fascial fibromatosis; Mild cognitive impairment of uncertain or unknown etiology; Other skin changes; Encounter for screening for diabetes mellitus; Encounter for screening for lipoid disorders; Other specified counseling; Encounter for general adult medical examination with abnormal findings Social History Tobacco Use Types Packs/Day Years Used Date Smoking Tobacco: Never Assessed Sex and Gender Information Value Date Recorded Sex Assigned at Not on file Gender Identity Not on file Sexual Orientation Not on file documented as of this encounter Plan of Treatment Not on file documented as of this encounter Visit Diagnoses Diagnosis Menopausal and female climacteric states- Primary Attention-deficit hyperactivity disorder, predominantly inattentive type Attention deficit disorder without mention of hyperactivity Plantar fascial fibromatosis Mild cognitive impairment of uncertain or unknown etiology Other skin changes Encounter for screening for diabetes mellitus Screening for diabetes mellitus Encounter for screening for lipoid disorders Screening for lipoid disorders Other specified counseling Encounter for general adult medical examination with abnormal findings Unspecified general medical examination documented in this encounter Care Teams Director Global Market Research Relationship Specialty Start Date End Date Haydee Breaux PA-C [address] [place] [phone] PCP - General 11/25/22 documented as of this encounter
--- OUTSIDE RECORDS SUMMARY | 2024-01-25 12:15 | XMS_ITS | Encounter Summary ---
Author Organization [facility] Address [address] [place] [address] Care Team Providers Care Commissioned Defence Force Officer Name Role Phone Md SONYA Murillo Primary Care Provider Unavaila ble Reason for Visit * Reason Onset Date Comments COVID-19 02/10/2021 Encounter Details Date Type Department Care Team (Late st Contact Info) Description 02/10/2021 Telephone [facility] [place] [address] [place] [address] Baltazar Cruz MD [address] [place] [address], [address] [place] [address] COVID-19 Social History Tobacco Use Types Packs/Day Years Used Date Smoking Tobacco: Never Assessed Sex and Gender Information Value Date Recorded Sex Assigned at Not on file Gender Identity Not on file Sexual Orientation Not on file documented as of this encounter Miscellaneous Notes * Telephone Encounter - Victorina Owen - 02/11/2021 0908 EST Spoke with patient, she is getting a pcr test done at her primary care on 02/16 and will convey theresults to ENT. * Telephone Encounter - Evy Delgado - 02/10/2021 1355 EST Called patient to schedule COVID-19 testing. Requested a call back @[phone]. This is our 1st attempt at contacting the patient. documented in this encounter Plan of Treatment Not on file documented as of this encounter Visit Diagnoses Not on filedocumented in this encounter Care Teams Commissioned Defence [employer] Officer Relationship Specialty Start Date End Date Md Murillo MD PCP - General 12/03/09 11/24/22 documented as of this encounter
--- OUTSIDE RECORDS SUMMARY | 2024-01-25 12:15 | XMS_ITS | Encounter Summary ---
Author Organization [facility] Address [address] [place] [address] Care Team Providers Care Maintenance Service Supervisor Name Role Phone Haydee Breaux PA-C Primary Care Provider + Encounter Details Date Type Department Care Team (Late st Contact Info) Description 07/25/2023 Lab Requisition [facility] Pathology & Laboratory Medicine - [address] [address] Areli Seo MD [address] [place] [address] [place] [address] Encounter for other general examination Social History [...] Name Priority Date/Time Associated Diagnosis Comments PAP TEST Today 07/24/2023 3:30 EDT Encounter for other general examination HPV DNA DETECTION WITH GENOTYPING, PCR Today 07/24/2023 3:30 EDT Encounter for other general examination documented in this encounter Results * HUMAN PAPILLOMAVIRUS (HPV) DETECTION-HIGH RISK TYPES (07/24/2023 3:30 EDT) HPV other High Risk types, PCR Negative Negative 08/01/2023 16:16 EDT [facility] Comment:No E6 or E7 mRNA is detected from HPV types 16,18,31,33,35,39,45,51,52,56,58,59,66, and 68 by stereotype molder mediated amplification. Pap Test CERVIX UTERI STRUCTURE / Unknown 07/24/2023 3:30 EDT 07/31/2023 9:04 EDT Areli Seo MD MICROBIOLOGY - GENER AL ORDERABLES [facility] [address] [place] [phone] * PAP TEST (07/24/2023 3:30 EDT) Specimens A. Cervix and/or Endocervix , ThinPrep Imaging System with Manual Evaluation 08/01/2023 16:16 [facility] Specimen Adequacy Satisfactory for Evaluation - transformation zone component present 08/01/2023 16:16 [facility] General Categorization Negative for intraepithelial lesion or malignancy 08/01/2023 16:16 [facility] Attestation . 08/01/2023 16:16 [facility] at 1616 Clinical History See below 08/01/19 24 16:16 [facility] HPV The result for the Human Papillomavirus (HPV) Detection-High Risk Types is Negative. No E6 or E7 mRNA is detected from HPV types 16,18,31,33,35,39 ,45,51,52,56,58,5 9,66, and 68 by stereotype molder mediated amplification.Aileen ting was performed on specimen [id number] and was resulted on 08/01/2023 1616 EDT by KIERRA, LAB INSTRUMENT RESULTS IN 08/01/2023 16:16 T [facility] Performing Lab [facility] 08/01/2023 16:16 T [facility] Scanned Images 08/01/2023 16:16 [facility] Pap Test CERVIX UTERI STRUCTURE / Unknown 07/24/2023 3:30 EDT 07/25/2023 14:17 EDT Areli Seo MD PATHOLOGY ORDERABLES [facility] [address] [place] [address] documented in this encounter Visit Diagnoses Diagnosis Encounter for other general examination documented in this encounter Care Teams Maintenance Service Supervisor Relationship Specialty Start Date End Date Haydee Breaux PA-C [address] [place] [phone] PCP - General 11/25/22 documented as of this encounter
--- OUTSIDE RECORDS SUMMARY | 2024-01-25 12:15 | XMS_ITS | Encounter Summary ---
Author Organization [facility] Address [address] [place] [address] Care Team Providers Care White Kid Buffer Name Role Phone Haydee Breaux PA-C Primary Care Provider + Encounter Details Date Type Department Care Team (Late st Contact Info) Description 12/01/2022 Lab Requisition [facility] Pathology & Laboratory Medicine - [address] [address] Darleen Rice, COMMERCIAL DOOR INSTALLER [address] [place] [address] Encounter for other general [...] Date/Time Associated Diagnosis Comments PAP TEST Today 11/29/2022 15:30 EDT Encounter for other general examination HPV DNA DETECTION WITH GENOTYPING, PCR Today 11/29/2022 15:30 EDT Encounter for other general examination documented in this encounter Results * (ABNORMAL) HUMAN PAPILLOMAVIRUS (HPV) DETECTION-HIGH RISK TYPES (11/29/2022 15:30 EDT) HPV other High Risk types, PCR Positive( A) Negative 12/12/2022 18:18 EDT [facility] Comment:E6 OR E7 mRNA from o ne or more types of HPV types 16,18,31,33,35,39,45,51,52,56,58,59,66, and 68 is detected by council member mediated amplification. High and intermediate risk HPV types are associated with most squamous intraepithelial lesions and cervical cancers. Pap Test CERVIX UTERI STRUCTURE / Unknown 11/29/2022 15:30 EDT 12/12/2022 9:12 EDT Darleen Rice APRN MICROBIOLOGY - GE NERAL ORDERABLES [facility] [address] [place] [address] * PAP TEST (11/29/2022 15:30 EDT) Specimens A. Cervix and/or Endocervix , ThinPrep Imaging System with Manual Evaluation 12/12/2022 18:18 T [facility] Specimen Adequacy Satisfactory for Evaluation - transformation zone component present 12/12/2022 18:18 [facility] General Categorization Epithelial Cell Abnormality 12/12/2022 18:18 [facility] Descriptive Diagnosis Squamous Cell Abnormality - Atypical squamous cells, undetermined significance (ASC-US). 12/12/2022 18:18 [facility] Educational Comments [facility] recommends following the ASCCP's management guidelines which may be found at www.asccp.org 12/12/2022 18:18 [facility] Attestation By the signature below, the attending physician certifies that they have personally conducted a gross and/or microscopic examination of the described specimens and rendered or confirmed the above diagnosis. 12/12/2022 18:18 [facility] at 1818 Clinical History See below 12/13/19 18:18 [facility] HPV The result for the Human Papillomavirus (HPV) Detection-High Risk Types is Positive . E6 OR E7 mRNA from one or more types of HPV types 16,18,31,33,35,39 ,45,51,52,56,58,5 9,66, and 68 is detected by council member mediated amplification. High and intermediate risk HPV types are associated with most squamous intraepithelial lesions and cervical cancers. Testing was performed on specimen [id number] and was resulted on 12/12/2022 1818 EDT by KIERRA, LAB INSTRUMENT RESULTS IN 12/12/2022 18:18 EDT [facility] Performing Lab [facility] 12/12/2022 18:18 EDT [facility] Scanned Images 12/12/2022 18:18 EDT [facility] Pap Test CERVIX UTERI STRUCTURE / Unknown 11/29/2022 15:30 EDT 12/01/2022 12:23 EDT Darleen Rice APRN PATHOLOGY ORDERAB LES [facility] [address] [place] [address] documented in this encounter Visit Diagnoses Diagnosis Encounter for other general examination documented in this encounter Care Teams White Kid Buffer Relationship Specialty Start Date End Date Haydee Breaux PA-C [address] [place] [address] PCP - General 11/25/22 documented as of this encounter
--- OUTSIDE RECORDS SUMMARY | 2024-01-25 12:16 | XMS_ITS | Encounter Summary ---
Author Organization [facility] Address [address] [place] [address] Care Team Providers Care Diesel Engine Inspector Name Role Phone Md SONYA Murillo Primary Care Provider Rosalia ble Encounter Details Date Type Department Care Team (Late st Contact Info) Description 12/01/2009 Results Only [facility] Laboratory Services - [facility] ([facility] [address] [place], [place] [id number] Jazmyn Gonzáles MD [facility] [address] [place], [place] [id number] Social History Tobacco Use Types Packs/Day Years Used Date Smoking Tobacco: Never Assessed Sex and Gender Information Value Date Recorded Sex Assigned at Not on file Gender Identity Not on file Sexual Orientation Not on file documented as of this encounter Plan of Treatment Not on file documented as of this encounter Procedures Procedure Name Priority Date/Time Associated Diagnosis Comments HPV DETECTION, HIGH RISK TYPES Routine 12/01/2009 10:21 EDT CYTOPATHOLOGY Routine 12/01/2009 0:00 EDT documented in this encounter Results * HUMAN PAPILLOMA VIRUS DNA TEST (12/01/2009 10:21 EDT) Specimen Description Cervix, ThinPrep vial [facility] Result Negative for HPV types 16, 18, 31, 33, 35, 39, 45, 51, ??with dysplasiaand some cervical cancers. [facility] Report Status Final 12/11/2009 [facility] 12/01/2009 10:2 1 EDT 12/09/2009 10:21 EDT Jazmyn Gonzáles MD MICROBIOLOGY - GENER AL ORDERABLES [facility] [address] [address] * CYTOPATHOLOGY (12/01/2009 0:00 EDT) Pathology Report: CYTOPATHOLOGY REPORT ? Reports generated via electronic interface contain original data; ? however they are lacking the format of the original report. ? Caution should be taken when reading/interpreti ng unformatted reports. ? Name: ? CASE, DEVIN ? Accession #: ? [id number] ? : ? 1970 (Age: 39) ??F ?Collect Date: ? 12/01/2009 ? Location: ? [facility] ? Receive Date: ? 12/03/2009 ? Provider: ?JAZMYN READY MD ? Copy to: ? Specimen/Source: ?Pap Test, Cervix/Endocervix, ThinPrep Imaging System ? with manual evaluation ? Last Menstrual Period: ? Menstrual/Pregnanc y Status: ? Metrorrhagia ? Hormonal/Contracep tive Status: ? Intrauterine device ? Previous Gynecologic Pathology: ? ASC-US: ??age 19 yo ? Other: ? Additional clinical information: 12-18 menses last 9 mos ? HPVDX - HPV testing requested regardless of diagnosis on current ThinPrep Pap ?? test. ? SPECIMEN ADEQUACY ? Satisfactory for Evaluation ? - transformation zone component present ? GENERAL CATEGORIZATION ? Negative for Intraepithelial Lesion or Malignancy ? INTERPRETATION ? Reactive cellular changes associated with inflammation present (includes ?? repair). ? Shift in jose present suggestive of bacterial vaginosis. ? Document reviewed and electronically signed by: ? ISABELA L CIOLINO MD ? Report Date: ??12/08/2009 13:23 ? End of Report ? [facility] 12/01/2009 12/03/2009 Jazmyn Gonzáles MD PATHOLOGY ORDERABLES [facility] [address] [place] [address] documented in this encounter Visit Diagnoses Not on filedocumented in this encounter Care Teams Diesel Engine Inspector Relationship Specialty Start Date End Date Md Murillo MD PCP - General 12/03/09 11/24/22 documented as of this encounter
[2024-01-25 12:53] LABS: Abs Immature Grans 0.02 10^3/uL (0.0-0.06); Absolute Basophil Count 0.08 10^3/uL (0.0-0.2); Absolute Eosinophil Count 0.21 10^3/uL (0.0-0.7); Absolute Lymphocyte Count 1.74 10^3/uL (1.2-3.4); Absolute Neutrophil Count 4.64 10^3/uL (1.2-6.7); Basophils % 1.1 %; Eosinophils % 2.9 %; HCT 41.5 % (36.0-46.0); HGB 13.8 g/dL (11.2-15.7); Immature Grans % 0.3 %; Lymphocytes % 23.9 %; MCH 29.7 pg (27.0-33.0); MCHC 33.3 % (32.0-36.0); MCV 89 fL (80-95); MPV 8.7 fL (8.0-11.0); Monocytes % 8.2 %; Neutrophils % 63.6 %; Platelet Count 438 10^3/uL (130-400); RBC 4.65 10^6/uL (3.93-5.22); RDW 11.7 % (11.7-14.6); RDW-SD 37.4 fL; WBC 7.29 10^3/uL (4.4-10.8)
[2024-01-25 12:56] LABS: Hemoglobin A1C 5.4 % (<5.7)
[2024-01-25 13:13] LABS: ALT 32 U/L (14-59); AST 24 U/L (15-37); Alkaline Phosphatase 140 U/L (46-116); Anion Gap 10.1 mmol/L (3-11); BUN 12 mg/dL (7-18); CO2 27.9 mmol/L (21.0-32.0); Calcium 9.8 mg/dL (8.5-10.1); Chloride 102 mmol/L (98-107); Estimated GFR 66.95 (mL/min/1.73m2); FREE T4 1.04 ng/dL (0.76-1.46); Glucose 92 mg/dL (74-106); Potassium 3.9 mmol/L (3.5-5.1); Sodium 140 mmol/L (136-145); TSH 1.08 uIU/mL (0.36-3.74); Total Protein 8.2 g/dL (6.4-8.2)
[2024-01-25 13:50] LABS: Calculated LDL 124 mg/dL (<100); Cholesterol 233 mg/dL (<200); HDL Cholesterol 98 mg/dL (40-60); Triglyceride 56 mg/dL (<150)
[2024-01-25 22:05] LABS: Estradiol 87 pg/mL (See Note); Progesterone 3.5 ng/mL (See Table)
[2024-01-26 08:23] LABS: DHEA Sulfate 222 ug/dL (56-283)
[2024-01-30 12:55] LABS: Testosterone, Total 19 ng/dL (8-60)
== END 2024-01-25 12:13 | disposition home or self-care (01) ==
LOC: LBO 12:14
PROVIDERS: PCP Physician Assistant Medical; Visit Provider Midwife
DX: Z79.890 Hormone replacement therapy (principal); Z13.29 Encounter for screening for other suspected endocrine disorder; Z13.1 Encounter for screening for diabetes mellitus; Z13.220 Encounter for screening for lipoid disorders; Z13.0 Encounter for screening for diseases of the blood and blood-forming organs and certain disorders involving the immune mechanism; Z13.21 Encounter for screening for nutritional disorder; Z01.419 Encounter for gynecological examination (general) (routine) without abnormal findings
CPT/HCPCS: 36415; 80053; 80061; 82627; 84403; 82670; 83036; 84144; 84439; 84443; 85025

== ENCOUNTER 2024-07-18 15:59 | Emergency (ER) | payer BC, SELFPAY ==
[2024-07-18 16:04] VITALS: BP 142/77; PULSE 89; RESP 20; TEMP 37.1; O2SAT 98
[2024-07-18 16:08] VITALS: BP 142/77; PULSE 89; RESP 20; TEMP 37.1; O2SAT 98
--- NOTE | 2024-07-18 16:20 | W.ED.GENAD ---
Discharge Plan Disposition Patient Disposition: Home Discharge Details Clinical Impression: Corneal abrasion Primary Care Provider: Haydee Breaux ED Provider: Sherri Rosenberg Home Meds and New Rx's Prescriptions: No Action methylphenidate HCl [Ritalin] 5 mg tablet 5 mg PO BID spironolactone 25 MG tablet 50 mg PO DAILY calcium carbonate 500 MG tablet,chewable 500 mg PO DAILY Qty: 2 omega-3 fatty acids-fish oil 1 EACH capsule 1 ea PO DAILY Antioxidant A/C/E/Selenium 1 EACH capsule 1 ea PO DAILY Patient Comments: not taking. DM aripiprazole 2 mg tablet 2 mg PO DIRECTED venlafaxine 150 mg capsule,extended release 24hr 150 mg PO DAILY zolpidem 5 mg tablet 5 mg PO DIRECTED Rx Instructions: may repeat once if no response in 30-60 minutes ibuprofen 200 mg Tablet 600 mg PO Q6H PRN progesterone micronized 100 mg capsule 100 mg PO HS Patient Comments: TAKE 1 CAPSULE BY MOUTH EVERY NIGHT methylphenidate HCl 36 mg tablet extended release 24hr 36 mg PO DAILY Patient Comments: TAKE ONE TABLET BY MOUTH EVERY DAY Discharge Instructions Instructions: Corneal Abrasion ED Additional Instructions: Please follow-up with [facility] tomorrow morning at 1015 for follow-up appointment for thorough eye exam. Use erythromycin ointment 4 times daily, applying a 1 cm ribbon in your lower eyelid. This provides a soothing effect and will prevent infection. Return to emergency care if you LEFT 110 develop new fever/chills, severe eye pain, vision changes, headache, uncontrollable vomiting, or if you are very worried you need to be rechecked again immediately HPI General Date/Time Provider Initiated Documentation: 07/18/24 16:05. HPI Narrative: Devin is a 53 year old female who presents to the emergency department today for evaluation of left eye pain/foreign body sensation under upper eyelid. She reports that this started this morning, thinks she got something in her eye while she was outside yesterday, says it was windy out. Denies eye drainage, vision changes, photophobia, POZO, recent illness. Does not use contact lenses or history of eye diagnoses/surgeries. Denies significant relavant past medical history. Physical exam remarkable for diffuse scleral injection; no ciliary flush. Conjunctiva noted to be reddened as well. No foreign bodies visualized under upper or lower eyelid, eyelids both everted. PERRL, EOMs intact. Normal eyelids. Fluorescein stain showed faint fluorescein uptake around the 5 o'clock position. No dendrites or corneal ulcerations noted. Patient had good improvement of symptoms with tetracaine drops. D/dx includes but is not limited to: Corneal abrasion, Allergic or viral conjunctivitis, episcleritis. No red flags concerning for emergency pathology such as acute angle-closure glaucoma. I did place a call to patient's optometry office, she can be seen tomorrow morning for an urgent follow-up visit. Will treat with erythromycin ointment for presumed corneal abrasion. Reviewed discharge instructions with patient, including symptomatic management and red flags indicating need for return to emergency care Related Data Home Medications ?Medication ?Instructions ?Recorded ?Confirmed calcium carbonate 500 mg PO DAILY ##2 02/06/13 07/18/24 omega-3 fatty acids-fish oil 300 1 ea PO DAILY 02/06/13 07/18/24 mg-1,000 mg capsule spironolactone 25 mg tablet 50 mg PO DAILY 02/06/13 07/18/24 vitamins A,C,and E-selenium 1 ea PO DAILY 02/06/13 07/18/24 capsule (Antioxidant A/C/E/Selenium capsule) ibuprofen 200 mg tablet 600 mg PO Q6H PRN 05/11/20 07/18/24 methylphenidate HCl 5 mg tablet 5 mg PO BID 11/29/22 07/18/24 (Ritalin) progesterone micronized 100 mg 100 mg PO HS 12/28/22 07/18/24 capsule aripiprazole 2 mg tablet 2 mg PO DIRECTED 11/21/23 07/18/24 venlafaxine 150 mg 150 mg PO DAILY 11/21/23 07/18/24 capsule,extended release 24 hr zolpidem 5 mg tablet 5 mg PO DIRECTED 11/21/23 07/18/24 methylphenidate HCl 36 mg 36 mg PO DAILY 07/18/24 07/18/24 tablet,extended release 24 hr Allergies Allergy/AdvReac Type Severity Reaction Status Date / Time trazodone Allergy Severe LABORED Verified 07/18/24 16:11 BREATHING mirtazapine Allergy Intermediate Other (See Verified 07/18/24 16:11 Comment) aripiprazole Allergy Anigioedema Unverified 07/18/24 16:11 latex AdvReac Intermediate Skin Rash Verified 07/18/24 16:11 General Stated Complaint: EyeProblem KEITH: 4 Review of Systems Narrative: See HPI Exam Const General: cooperative, healthy appearing, comfortable, no acute distress and well developed Nutritional Appearance: average body habitus and well nourished Orientation: alert and oriented x3 HENMT Head: normal to inspection and atraumatic Ears: hearing grossly normal bilaterally General nose exam: external nose normal Face and sinus: normal facial exam Eyes Alignment and Position: alignment normal Periorbital: periorbital findings normal Conjunctivae: conjunctival abnormality left conjunctival injection; without discharge Sclera: scleral abnormality left scleral injection; without foreign bodies and without hemorrhages Cornea: corneas abnormal on the left abrasion (round, approx 4 cm diameter) at the following clock position (5); no contact lens present, without diffuse punctate uptake, without dendrites present, with no foreign body noted and without ulcerations and fluorescein used Pupils: PERRL EOM: EOM intact bilaterally Neck Neck: normal visual inspection, full ROM and no lymphadenopathy Resp Effort & Inspection: normal respiratory effort and able to speak in complete sentences Course Vital Signs Vital signs: Vital Signs Temperature 37.1 C 07/18/24 16:04 Pulse 89 07/18/24 16:04 Respiratory Rate 20 07/18/24 16:04 Blood Pressure 142/77 H 07/18/24 16:04 Pulse Oximetry 98 07/18/24 16:04 Temperature 37.1 C 07/18/24 16:08 Pulse 89 07/18/24 16:08 Respiratory Rate 20 07/18/24 16:08 Blood Pressure 142/77 H 07/18/24 16:08 Blood Pressure Position Sitting 07/18/24 16:08 Pulse Oximetry 98 07/18/24 16:08 Oxygen Delivery Method Room Air 07/18/24 16:08 Oxygen Flow Rate 0 07/18/24 16:08 Medical Decision Making Quality:SDOH Health Related Social Needs: No Data to Display PFSH All Active Problems (Updated 07/18/24 @ 17:06 by Sherri Okeefe) Corneal abrasion (Acute) Vulvar lesion (Acute) Perimenopause (Acute) Medical History (Updated 07/18/24 @ 17:06 by Sherri Okeefe) History of severe acute respiratory syndrome coronavirus 2 (SARS-CoV-2) disease Screening mammogram for breast cancer Screening for viral disease Healthy adult on routine physical examination Electroretinogram abnormal Low back pain, unspecified breast lump R Benign 2009 Surgical History (Updated 01/17/23 @ 11:36 by Areli Seo MD) History of hysteroscopy removal of retained Paragard IUD arm in the upper right cervix. Hx of esophagogastroduodenoscopy History of recent maxillofacial surgery surgery was wisdom teeth removed Sclerotherapy L leg veins 2007 Family History Other Heart disease Hyperlipidemia Mental disorder Personal history of malignant neoplasm Social History (Updated 11/20/18 @ 14:07 by Sharmaine Ventura NP) Smoking/Tobacco Use Status: Former Tobacco Use Quit Date: 03/27/89 Smoking risk assessment performed?: Yes Alcohol Intake: current Alcohol Intake frequency: holidays/special occasions only Alcohol type: hard liquor Drug use: Current Sobriety Substance use type: former substance user Housing: house current occupation: Musician Do you feel safe at home: Yes Do you feel safe in your relationship?: Yes Additional Social history: unable to assess privately 12/29/22-mkb History History 5 Para 0 Hx # Term Pregnancies Multiple births Hx # Pregnancies Ectopic pregnancies AB induced Hx Number of Living Children 1 AB spontaneous
[2024-07-18] MEDS: Fluorescein STRIPS 100/BOX 1 MG OP (16:24)
[2024-07-18] MEDS: Tetracaine 0.5% 4 ML BTL OP (16:24)
[2024-07-18] MEDS: Erythromycin Ophth Oint 3.5 GM TUBE OS (17:11)
== END 2024-07-18 17:14 | disposition home or self-care (01) ==
PROVIDERS: Emergency Provider Nurse Practitioner Family; PCP Physician Assistant Medical
DX: S05.02XA Injury of conjunctiva and corneal abrasion without foreign body, left eye, initial encounter (principal); X58.XXXA Exposure to other specified factors, initial encounter
CPT/HCPCS: 99283 ×2

== ENCOUNTER 2024-07-25 13:17 | Outpatient (REF) | payer BC, SELFPAY ==
--- NOTE | 2024-07-25 13:10 | PAPFT_PTH ---
PATIENT: Devin Davis LOC: [facility] U#:[id number] AGE/SX: 53/F ROOM: RE07/25/[address]: Areli Seo MD : 1970 BED: DIS: 07/25/2024 SPEC #: [id number] RECD: 07/25/24 17:41 STATUS: CEASAR REDilshad #: [id number] MONICA: 07/25/24 13:[address]: Areli Seo DEPT: [facility] Cytology RECD BY: Callie Hankins ENTERED: 07/25/24 17:42 SP TYPE: PAPFT OTHR DR: Haydee Breaux Tissues: 1 - CX/ENDOCX FOR PAP SMEARS Procedures: PAP THIN PREP/UVM Screening HPV DNA PROBE Comments: [id number] (HPV 16 & 18/45)
== END 2024-07-25 13:18 | disposition home or self-care (01) ==
LOC: LBN 13:17
PROVIDERS: PCP Physician Assistant Medical; Visit Provider Obstetrics & Gynecology
DX: Z12.4 Encounter for screening for malignant neoplasm of cervix (principal); R87.618 Other abnormal cytological findings on specimens from cervix uteri
CPT/HCPCS: 88142; 87624

== ENCOUNTER 2024-11-08 00:23 | Outpatient (CLI) | payer BC, SELFPAY ==
--- NOTE | 2024-11-08 11:45 | DI.MAMMO_ITS ---
Exam(s) MAMMO SCREENING EXAM: MAMMO SCREENING CLINICAL HISTORY: screening TECHNIQUE: Mammograms were interpreted according to the usual protocol including computer analysis with CAD system, tomosynthesis and C-view imaging. COMPARISON: 2020 and 2022 FINDINGS: The breasts are composed of scattered fibroglandular densities, Breast Density category B. No suspicious masses or suspicious microcalcifications are seen. A biopsy marker clip is again noted in the superior right breast. No skin thickening or abnormal axillary lymph nodes are seen. There has been no significant change from prior exams. IMPRESSION: BI-RADS Category 1, Negative mammogram Yearly screening mammography is recommended. Breast Density - Category B - There are scattered areas of fibroglandular density. Breast density Category C or D implies that the patient has dense breast tissue. Dense breast tissue can make it harder to find cancer on a mammogram. Dense breast tissue is also associated with an increased risk of breast cancer. This information about the result of the mammogram report was provided to the patient to raise their awareness. Use this report when you speak with the patient about their risks for breast cancer, which includes their family history. At that time, you may recommend additional screening tests (Ultrasound or MRI) as these tests may add significant information. A negative radiographic report should not delay biopsy if a dominant or clinically suspicious mass is present. Up to ten percent of cancers are not identified on mammography. A negative report may reinforce clinical impression. Adenosis and dense breasts may obscure an underlying neoplasm. False positive reports average 6 to 10%. Patient will receive a letter notifying them of these results.
== END 2024-11-08 00:43 ==
LOC: DI 00:23
PROVIDERS: PCP Physician Assistant Medical; Visit Provider Obstetrics & Gynecology
DX: Z12.31 Encounter for screening mammogram for malignant neoplasm of breast (principal)
CPT/HCPCS: 77063; 77067

== ENCOUNTER 2024-11-08 00:24 | Outpatient (CLI) | payer BC, SELFPAY ==
--- NOTE | 2024-11-08 13:30 | DI.RAD_ITS ---
Exam(s) XR THUMB LT EXAM: XR THUMB LT CLINICAL HISTORY: PAIN LEFT FINGERS M79.645 PAIN LT THUMB. TECHNIQUE: 2D digital imaging was performed. Three views. COMPARISON: None. FINDINGS: BONES: No acute fracture is present. No bony destructive lesion is seen. JOINTS: No dislocation present. There is spurring at the 1st carpal metacarpal joint no significant joint space narrowing or evidence of bony erosions. SOFT TISSUE: Normal. IMPRESSION: Mild degenerative changes at the 1st carpal metacarpal joint. DATA REPOSITORY: RADIATION DOSE DELIVERED:
--- NOTE | 2024-11-08 13:30 | DI.RAD_ITS ---
Exam(s) XR KNEE RT 3V AP,LAT,RUSTY EXAM: XR KNEE RT 3V AP,LAT,RUSTY CLINICAL HISTORY: RT KNEE PAIN M25.561. TECHNIQUE: 2D digital imaging was performed. Three views. COMPARISON: No exams were available for comparison FINDINGS: BONES: No acute fracture is present. No bony destructive lesion is seen. JOINTS: The knee is normally aligned. The joint spaces are maintained. No joint effusion is seen. SOFT TISSUE: Normal. IMPRESSION: Unremarkable radiographs of the right knee. DATA REPOSITORY: RADIATION DOSE DELIVERED:
== END 2024-11-08 00:44 ==
LOC: DI 00:24
PROVIDERS: PCP Physician Assistant Medical; Visit Provider Physician Assistant Medical
DX: M79.645 Pain in left finger(s) (principal); M25.561 Pain in right knee
CPT/HCPCS: 73562; 73140